=== PATIENT | male | born 2000 | race Caucasian/White ===

== ENCOUNTER 2020-11-08 09:23 | Outpatient (CLI) | payer OTHER, SELFPAY ==
--- NOTE | ~2020-11-08 | XR_ITS ---
EXAMINATION: XR ribs BI 3V w CXR 2V EXAM DATE: 11/08/2020 09:47 INDICATION: R07.81 - Pleurodynia . TECHNIQUE: Frontal projection of the upper left ribs, frontal projection of the lower left ribs, obli que projection of the left ribs. Frontal projection of the upper right ribs, frontal projection of t he lower right ribs, oblique projection of the right ribs, frontal and lateral chest x-ray(s) for int erpretation. There is no prior study for comparison. FINDINGS: The lungs are clear. There are no pleural effusions. The cardiomediastinal silhouette is within normal limits. There is no pneumothorax suspected. The ribs are unremarkable. There are no osteoblastic or osteolytic lesions identified. IMPRESSION: Unremarkable rib, chest x-ray exam. Reviewed, dictated and finalized at location A.
== END 2020-11-08 09:24 ==
PROVIDERS: PCP Family Medicine; Visit Provider Nurse Practitioner Family
DX: R07.81 Pleurodynia (principal)
CPT/HCPCS: 71046; 71110

== ENCOUNTER → 2021-06-26 02:56 | Outpatient (CLI) | payer OTHER, SELFPAY ==
[2021-06-26 20:10] LABS: SARS-CoV-2 RNA PCR Positive
== END ==
PROVIDERS: PCP Family Medicine; Visit Provider Nurse Practitioner Family
DX: U07.1 COVID-19 (principal)
CPT/HCPCS: C9803; U0003; U0005

== ENCOUNTER → 2021-12-27 14:03 | Outpatient (CLI) | payer OTHER, SELFPAY ==
--- NOTE | ~2021-12-27 | XR_ITS ---
EXAMINATION: XR chest 2V 12/27/2021 14:11 INDICATION: Cough PROCEDURE: 2 view chest COMPARISON: 11/08/2020 FINDINGS: The lungs are clear. The cardiomediastinal silhouette is within normal limits. There are no pleural effusions. There is no pneumothorax suspected. IMPRESSION: 1: NO ACUTE CARDIOPULMONARY DISEASE. Reviewed, dictated and finalized at location A.
== END ==
PROVIDERS: PCP Family Medicine; Visit Provider Nurse Practitioner Family
DX: R05.9 Cough, unspecified (principal)
CPT/HCPCS: 71046

== ENCOUNTER → 2022-01-09 15:12 | Outpatient (CLI) | payer OTHER, SELFPAY ==
--- NOTE | ~2022-01-09 | XR_ITS ---
XR chest 2V DATE: 01/09/2022 15:31 INDICATION: Cough TECHNIQUE: 2 views COMPARISON: 12/27/2021 2 view chest FINDINGS: Normal heart size. No hilar or mediastinal enlargement. No pulmonary infiltrate or consolid ation, pleural effusion or pulmonary vascular congestion or pneumothorax. IMPRESSION: No active cardiac pulmonary disease Reviewed, dictated and finalized at location B.
== END ==
PROVIDERS: PCP Family Medicine; Visit Provider Nurse Practitioner Family
DX: R05.9 Cough, unspecified (principal)
CPT/HCPCS: 71046

== ENCOUNTER 2022-11-13 16:38 | Emergency (ER) | payer OTHER, SELFPAY ==
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
[2022-11-13 16:40] VITALS: BP 146/74; PULSE 66; PULSE 76; RESP 19; O2SAT 99
--- NOTE | 2022-11-13 16:42 | ECG_ITS ---
Measurements Intervals [place] Rate: 61 P: 43 SD: 147 QRS: 75 QRSD: 89 T: 52 QT: 389 QTc: 393 Interpretive Statements SINUS RHYTHM NORMAL ECG NO PREVIOUS ECG AVAILABLE FOR COMPARISON Electronically Signed On 11-13-2022 18:55:04 CDT by Zan Knutson D.O.
--- NOTE | 2022-11-13 16:45 | PC.NURSE ---
pt c/o right hip pain in the joint . pt unable to straighten leg or bend leg due to pain. distal pulses intact.
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
[2022-11-13 17:00] LABS: Basophils Absolute Auto 0.1 K/mm3 (0.0-0.1); Basophils Percent Auto 0.5 % (0.2-1.2); Eosinophils Absolute Auto 0.3 K/mm3 (0-0.3); Eosinophils Percent Auto 2.9 % (0-4.4); Hematocrit 48.9 % (42.0-52.0); Hemoglobin 16.5 g/dL (14.0-18.0); Immature Granulocyte Absolute 0.05 K/mm3 (0.00-0.031); Immature Granulocyte Percent A 0.5 % (0-0.5); Lymphocytes Absolute Auto 2.78 K/mm3 (0.9-3.2); Lymphocytes Percent Auto 28.8 % (18.3-44.2); Mean Corpuscular HGB Conc 33.7 g/dl (32-36); Mean Corpuscular Hemoglobin 29.9 pg (26-34); Mean Corpuscular Volume 88.6 fl (80-100); Mean Platelet Volume 10.8 fl (7.4-10.4); Monocytes Absolute Auto 0.8 K/mm3 (0.1-0.6); Monocytes Percent Auto 8.3 % (2.6-8.5); Neutrophils Absolute Auto 5.7 K/mm3 (1.3-6.7); Platelet Count Result 222 k/mm3 (150-375); Red Blood Count 5.52 M/mm3 (4.6-6.20); Red Cell Distribution Width 11.9 % (11.5-14.5); White Blood Count 9.6 K/mm3 (4.5-10.0)
[2022-11-13] MEDS: MORPHINE SULFATE (*CRX) 4 MG/ML INJ IV PUSH (17:10)
[2022-11-13 17:11] LABS: Ethanol < 10 mg/dL (<10)
[2022-11-13 17:12] LABS: INR 1.1; Partial Thromboplastin Time 27.8 SECONDS (22.3-36.8); Prothrombin Time 14.6 Seconds (11.1-14.7)
[2022-11-13 17:18] LABS: Alanine Aminotransferase 29 U/L (6-50); Albumin Level 4.6 g/dL (3.5-5.1); Anion Gap 7 mmol/L (8-16); Aspartate Amino Transferase 38 U/L (17-59); Bilirubin,Total 1.4 mg/dL (0.2-1.3); Blood Urea Nitrogen 13 mg/dL (9-20); Calcium 8.7 mg/dL (8.4-10.2); Carbon Dioxide 28 mmol/L (22-30); Chloride 106 mmol/L (98-107); Estimated CRCL calculation 155 ml/min; Estimated Glomerular Filt Rate > 60; Glucose 106 mg/dL (65-110); Potassium 4.4 mmol/L (3.4-5.0); Sodium 141 mmol/L (137-145)
[2022-11-13 17:29] LABS: Lactic Acid Reflex 2.1 mmol/L (0.7-2.0)
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
[2022-11-13] MEDS: fentaNYL CITRATE INJ (*CRX) 100 MCG/2 ML VIAL (17:50)
[2022-11-13 18:00] VITALS: BP 149/94; PULSE 52; RESP 18; O2SAT 98
[2022-11-13] MEDS: SODIUM CHLORIDE 0.9% IV 1,000 ML 999 ML (18:02)
[2022-11-13 18:29] LABS: Alkaline Phosphatase < 20 U/L (38-126)
[2022-11-13 20:16] LABS: Reflex Lactic Acid Yes or No Add Lactic
== END 2022-11-13 18:00 | disposition short-term general hospital (02) ==
PROVIDERS: Emergency Provider Emergency Medicine; PCP Family Medicine
DX: S01.111A Laceration without foreign body of right eyelid and periocular area, initial encounter (principal); S20.213A Contusion of bilateral front wall of thorax, initial encounter; S09.90XA Unspecified injury of head, initial encounter; S79.911A Unspecified injury of right hip, initial encounter; V49.40XA Driver injured in collision with unspecified motor vehicles in traffic accident, initial encounter
CPT/HCPCS: 36415; 71045; 80053; 80307; 83605; 85025; 85610; 85730; 93005; 96361; 96374; 96375; 99285; J2270; J3010; J7030; L0140

== ENCOUNTER 2023-03-25 16:30 | Emergency (ER) | payer OTHER, SELFPAY ==
[2023-03-25 17:08] VITALS: BP 123/66; PULSE 85; RESP 16; TEMP 36.7; O2SAT 100
--- NOTE | 2023-03-25 17:30 | ED.URI ---
HPI - URI/Sore Throat General Chief Complaint: Upper Respiratory Infection Stated Complaint: sorethroat Time Seen by Provider: 03/25/23 17:30 History of Present Illness HPI Narrative: 22-year-old wan drummond presented for complaint of sore throat since last evening. Endorses mild runny nose and cough. States several people from work have been ill recently. He is not taking anything for symptoms. Denies shortness of, wheezing, nausea vomiting, fevers or chills. Related Data Home Medications Medication Instructions Recorded Confirmed No Home Medications 03/25/23 03/25/23 Allergies Allergy/AdvReac Type Severity Reaction Status Date / Time niacin Allergy Intermediate Rash Verified 11/13/22 16:50 Review of Systems Review of Systems: CONSTITUTIONAL: Denies body aches, fever, chills, or sweats. EYES: Denies visual changes, redness, or discharge. ENT: Reports sore throat, rhinorrhea, denies otalgia. CARDIOVASCULAR: Denies chest pain, palpitations, or edema. RESPIRATORY: Denies dyspnea. GASTROINTESTINAL: Denies abdominal pain, nausea, vomiting, or diarrhea. SKIN: Denies rash, itching, or wounds. MUSCULOSKELETAL: Denies back pain, joint pain, or myalgia. NEUROLOGIC: Denies headache PMFSH Past Medical History Medical History Acute bronchitis BMI 25.0-25.9,adult BMI 26.0-26.9,adult Right otitis media Family History Family History Father Arthritis Mother No problems noted. Sibling No problems noted. Other Family history of coronary artery disease Family history of lung cancer Social History Social History Smoking status: Never smoker Second hand tobacco smoke exposure: No Alcohol intake: current Substance use: never Substance use type: does not use Living arrangements: with family Occupation/Education: occupation Additional occupation/education comments: Production work. Gender identity (if verbalized by the patient): Male Exam Narrative: GENERAL: well-appearing, no acute distress. EYES: conjunctivae clear ENT: Mucous membranes moist. TMs pearly pearson with normal light reflex bilaterally; no tragal tenderness. Oropharynx mildly erythematous without lesions. Tonsils 1+ without exudate. No drooling, no hoarseness, no trismus, uvula midline. No tripod positioning, hot potato voice, or soft palate swelling. NECK: Supple. No lymphadenopathy CHEST: Clear to auscultation, breath sounds equal. No respiratory distress, speaks in full sentences. HEART: Regular rate and rhythm. No murmur heard. SKIN: Warm, dry, no rash. NEURO: Alert and oriented x3. Course Course Emergency Course: Patient is aware of diagnosis, understands and agrees to treatment plan. Anticipatory guidance given. Patient agrees to follow-up as directed and is aware of reasons to seek care at the emergency department. Portions of this record may have been created with voice recognition software Level of Care: Express Care Visit Vital Signs Vital signs: Vital Signs Temperature 98.0 F 03/25/23 17:08 Pulse Rate 85 03/25/23 17:08 Respiratory Rate 16 03/25/23 17:08 Blood Pressure 123/66 03/25/23 17:08 Pulse Oximetry 100 03/25/23 17:08 Oxygen Delivery Room Air 03/25/23 17:08 Temperature 98.0 F 03/25/23 17:08 Pulse Rate 85 03/25/23 17:08 Respiratory Rate 16 03/25/23 17:08 Blood Pressure 123/66 03/25/23 17:08 Pulse Oximetry 100 03/25/23 17:08 Oxygen Delivery Room Air 03/25/23 17:08 MDM - URI/Sore Throat MDM Narrative Medical decision making narrative: Neg strep result reviewed with pt. Will culture. Advise supportive treatments. Patient is appropriate for outpatient treatment and follow-up. Differential Diagnosis Differential diagnosis: Likely upper respiratory infection, viral i
== END 2023-03-25 17:41 | disposition home or self-care (01) ==
PROVIDERS: Emergency Provider Nurse Practitioner Family; PCP Family Medicine
DX: J02.9 Acute pharyngitis, unspecified (principal)
CPT/HCPCS: 87081; 87880; 99213; G0463